=== PATIENT | female | born 1985 | race Caucasian/White ===

== ENCOUNTER 2017-03-19 03:55 | Inpatient (IN) | payer OTHER ==
[2017-03-19] MEDS ORDERED: DEXTROSE 5%-LACTATED RINGERS 1,000 ML IV SCH (05:15)
[2017-03-19 05:31] VITALS: BMI 46.5
[2017-03-19] MEDS ORDERED: OXYTOCIN 15 UNITS/ LR 250 ML 250 ML IVPB SCH (06:30)
--- NOTE | 2017-03-19 06:35 | HP ---
Past Medical History - Primary Care Physician PCP:: Armond Ritchie - Admission Chief Complaint: labor pains History of Present Illness: 31 y/o comes with labor pains. She is a pt of [facility]. gbs neg, hiv neg, cbc normal, hep neg, rpr neg. Comes at 4 cm labor pain History Source: Patient Limitations to Obtaining History: No Limitations - Past Medical History [employer]TING [employer]ER: No: Alzheimer's, CVA, Dementia, Migraine, Multiple Sclerosis, Peripheral Neuropathy, Parkinson's, Seizure, Syncope, TIA, Vertigo, Other Cardiovascular: No: AFIB, Aneurysm, Aortic Insufficiency, Aortic Stenosis, CAD, CHF, Deep Vein Thrombosis, HTN, Hyperlipdemia, SD, Mitral Insufficiency, Mitral Stenosis, Murmur, Pulmonary Hypertension, Other Pulmonary: No: Asthma, Bronchitis, Cancer, COPD, O2 Dependent, Pneumonia, Previously Intubated, Pulmonary Embolus, Pulmonary Fibrosis, Sleep Apnea, Other Gastrointestinal: No: Ascites, Cancer, Constipation, Crohn's Disease, Diverticulitis, Diverticulosis, Esophageal Varices, Gastritis, GERD, GI Bleed, Hemorrhoids, Hiatal Hernia, Inflamatory Bowel Disease, Irritable Bowel Disease, Pancreatitis, Peptic Ulcer Disease, Ulcerative Colitis, Other Hepatobiliary: No: Cirrhosis, Cholelithiasis, Cholecystitis, Choledocholithiasis , Hepatitis A, Hepatitis B, Hepatitis C, Other Renal/: No: Renal Failure, Renal Inusuff, BPH, Cancer, Hematuria, Hemodialysis , Neurogenic Bladder, Renal Calculi, UTI, Other Reproductive: No: Ectopic , Endometriosis, Fibroids, PID, Polycystic Ovary Syndrome, Postmenopausal, Other ...: 4 ...Para: 3 ...Term: 3 ...: 0 ...Spon : 0 ...Induced : 0 ...Multiple Gestation: 0 ...LMP: 06/07/16 ... Weeks Gestation by Dates: 40.5 ...EDC by Dates: 03/14/17 ...EDC by Sono: 03/14/17 Heme/Onc: No: Anemia, B12 Deficiency, Bleeding Disorder, Cancer, Current Chemotherapy, Current Radiation Therapy, Hemochromatosis, Hypercoaguable State, Myeloproliferative Synd, Sickle Cell Disease, Sickle Cell Trait, Thrombocytopenia, Other Infectious Disease: No: AIDS, C-Diff, Herpes Zoster, HIV, MRSA, STD's, Tuberculosis, VREF, Other Psych: No: Addictions, Anxiety, Bipolar, Depression, Panic, Psychosis, Schizophrenia, Other Musculoskeletal: No: Bursitis, Chronic low back pain, Hemiparesis, Hemiplegia, Osteoarthritis, Paraplegia, Other Rheumatology: No: Fibromyalgia, Gout, Lupus, Rheumatoid Arthritis, Sarcoidosis, Vasculitis, Other ENT: No: Allergic Rhinitis, Sinusitis, Other Dermatology: No: Basal Cell, Cellulitis, Eczema, Melanoma, Psoriasis, Squamous Cell, Other - Past Surgical History Past Surgical History: No: None, AAA Repair, AICD, Amputation, Appendectomy, Arthrosocopy, AV Fistula/Graft, Bariatric Surgery, Breast Biopsy, Bypass, CABG, Carotid Endarterectomy, Cataract Removal, Cholecystectomy, Colectomy, Colonoscopy, Colostomy, Craniotomy, , Cystectomy, Hernia Repair, Hysterectomy, Ileal Conduit, Ileosotomy, Joint Replacement, Kidney Transplant, Laminectomy, Liver Transplant, Mastectomy, Nephrectomy, Oopherectomy, Orchiectomy, Permanent Pacemaker, Prostatectomy, Splenectomy, Stent, Thoracotomy , TURP, Tonsillectomy, Tubal Ligation, Upper Endoscopy, Valve Replacement, Vasectomy, Vein Stripping/Ligation - Advance Directives Advance Directives: No: Living Will, Health Care Proxy, DNR, Organ Donor, Tissue Donor, MOLST - Smoking History Smoking history: Never smoked Aproximately how many cigarettes per day: 0 - Alcohol/Substance Use Hx Alcohol Use: No History of Substance Use: denies: None, Cocaine, Heroin, Marijuana, Prescription , Tranquilizers - Social History Usual Living Arrangement: No: Alone, With Spouse, With Parent, With Significant Other, With Child, Assisted Living, [facility]pc, Other Home Medications - Allergies Allergies/Adverse Reactions: Allergies Allergy/AdvReac Type Severity Reaction Status Date / Time No Known Allergies Allergy Verified 06/22/12 12:31 - Home Medications Home Medications: Ambulatory Orders Iron 1 tab PO DAILY 03/18/17 Vitamins (Sjr) - 1 tab PO DAILY 03/18/17 Ibuprofen [Motrin -] 600 mg PO TID #21 tablet 03/20/17 Review of Systems - Review of Systems Constitutional: reports: No Symptoms Eyes: reports: No Symptoms HENT: reports: No Symptoms Neck: reports: No Symptoms Cardiovascular: reports: No Symptoms Respiratory: reports: No Symptoms Gastrointestinal: reports: No Symptoms Genitourinary: reports: No Symptoms Breasts: reports: No Symptoms Reported Musculoskeletal: reports: No Symptoms Integumentary: reports: No Symptoms Neurological: reports: No Symptoms Endocrine: reports: No Symptoms Hematology/Lymphatic: reports: No Symptoms Psychiatric: reports: No Symptoms Physical Exam - Maternity Vital Signs: Vital Signs Temperature 97.6 F 03/19/17 04:00 Pulse Rate 77 03/19/17 04:00 Respiratory Rate 20 03/19/17 04:00 Blood Pressure 118/69 03/19/17 04:00 O2 Sat by Pulse Oximetry (%) Constitutional: Yes: Well Nourished Eyes: Yes: WNL HENT: Yes: WNL Neck: Yes: WNL Cardiovascular: Yes: WNL Breast(s): Yes: WNL - Abdominal Exam/OB Presentation: Vertex Contractions: Yes Regularity: Irregular Intensity: Mild Monitor Mode: External Heart Rate (range): 150 Category: I Accelerations: Uniform Decelerations: None - Vaginal Exam/OB Vaginal Bleediing: No Dilatation (cm): 4 Effacement (%): 60 Amniotic Membrane Status: Ruptured Nitrazine Test: Positive Amniotic Fluid: Yes: Clear Presentation: Vertex/Position Station: -3 - Physical Exam Musculoskeletal: Yes: WNL Extremities: Yes: WNL Assessment/Plan admit labs done pitocin expect
[2017-03-19] MEDS: ELECTROLYTE-148 SOLN 1,000 ML IV SCH ×2 (07:30→08:32)
[2017-03-19] MEDS ORDERED: FENTANYL/BUPIVACAINE/NS/PF - PCEA - 50 ML DISP.SYRIN EP SCH ×2 (08:00→10:22)
--- NOTE | 2017-03-19 09:12 | PN ---
Ante-Partal Exam - Subjective Vital Signs: Vital Signs Temperature 97.7 F 03/19/17 06:00 Pulse Rate 67 03/19/17 08:45 Respiratory Rate 20 03/19/17 08:45 Blood Pressure 96/55 03/19/17 08:45 O2 Sat by Pulse Oximetry (%) 100 03/19/17 08:45 Bleeding: No Headache: No Visual changes: No Right upper quadrant pain: No - Contractions Contractions: Yes Regularity: Regular Intensity: Unaware Monitor Mode: External - Exam during Labor Heart Rate: 150 Variability: Moderate Heart Rate Location: Midline Category: I Monitor Accelerations: Present Monitor Decelerations: None Exam: Vaginal Dilatation (cm): 9 Effacement (%): 100 Amniotic Membrane Status: Ruptured Nitrazine Test: Positive Amniotic Fluid: Clear Presentation: Vertex Station: -1 - Assessment/Plan Assessment/Plan: continue care expect
[2017-03-19] MEDS: OXYTOCIN 20 UNITS in 0.9% NS 1,000 ML IV SCH ×2 (14:10→19:21)
[2017-03-19] MEDS ORDERED: BENZOCAINE 28 GM HEMORRHOIDAL OINTMENT TP PRN (14:45)
[2017-03-19] MEDS ORDERED: BENZOCAINE 20% 57 GM BOTTLE TP PRN (14:45)
[2017-03-19] MEDS ORDERED: WITCH HAZEL 50% (TUCKS) 40 PAD/JAR PAD TP PRN (14:45)
[2017-03-19] MEDS ORDERED: METHYLERGONOVINE MALEATE 0.2 MG/1 ML AMP IM PRN (14:45)
[2017-03-19] MEDS ORDERED: BISACODYL 10 MG SUPP.RECT RC PRN (14:45)
--- NOTE | 2017-03-19 14:45 | PN ---
Delivery - Delivery Vaginal Delivery: No Problems Episiotomy/Laceration: Midline EBL (cc): 300 Delivery, Single - [place] Feeding Plan Initial Plan: Elected not to breastfeed exclusively throughout hospitalization
[2017-03-20] MEDS: IBUPROFEN 600 MG TABLET (FP) PO PRN ×2 (00:19→14:37)
[2017-03-20] MEDS: ACETAMINOPHEN 325 MG TABLET (FP) PO PRN ×2 (00:19→14:36)
--- NOTE | 2017-03-20 05:41 | PN ---
Post Progress Note Post Day: 1 Type of Delivery: Vital Signs: Vital Signs Temperature 98.5 F 03/20/17 00:33 Pulse Rate 90 03/20/17 00:33 Respiratory Rate 20 03/20/17 00:33 Blood Pressure 120/65 03/20/17 00:33 O2 Sat by Pulse Oximetry (%) 100 03/19/17 17:00 Breast Exam: Yes: Soft Uterus: Yes: Fundus Firm Abdomen/GI: Yes: Abdomen soft Lochia: Yes: Rubra Lochia, amount: Small Perineum: Yes: Intact Activity: Ambulating Assessment/Plan as above doing well ambulate dc home tomorrow
[2017-03-20 07:37] LABS: BASOPHIL 0.1 % (0-2.0); MCH 30.3 pg (25.7-33.7); MEAN CELL VOLUME 89.2 fl (80-96); MEAN PLT VOLUME 8.4 fl (7.5-11.1); NEUTROPHILS 73.8 % (42.8-82.8); PLATELET COUNT 104 K/MM3 (134-434); RDW 13.8 % (11.6-15.6)
[2017-03-20] MEDS ORDERED: FLU VACC QS2017-18 36MOS UP/PF 60 MCG/0.5 ML SYRINGE IM ONE (10:00)
[2017-03-20] MEDS ORDERED: DIPHTH,PERTUSS(ACELL),TET 0.5 ML DISP.SYRIN IM ONE (10:00)
[2017-03-20] MEDS ORDERED: SENNOSIDES/DOCUSATE COMBO (SENNA PLUS) TABLET (UD) PO PRN (22:00)
[2017-03-21] MEDS: ACETAMINOPHEN 325 MG TABLET (FP) PO PRN (06:12)
[2017-03-21] MEDS: IBUPROFEN 600 MG TABLET (FP) PO PRN (06:12)
[2017-03-21 08:39] VITALS: BP 135/70; PULSE 85; TEMP 98.8
--- NOTE | 2017-03-21 11:21 | PN ---
Post Progress Note Post Day: 2 Type of Delivery: Vital Signs: Vital Signs Temperature 98.8 F 03/21/17 08:37 Pulse Rate 85 03/21/17 08:37 Respiratory Rate 20 03/21/17 08:37 Blood Pressure 135/70 03/21/17 08:37 O2 Sat by Pulse Oximetry (%) 100 03/19/17 17:00 Breast Exam: Yes: Soft Uterus: Yes: Fundus Firm Abdomen/GI: Yes: Abdomen soft Lochia: Yes: Rubra Lochia, amount: Small Extremities: Yes: Calves non-tender Perineum: Yes: Intact - Labs Labs: CBC WBC 9.0 K/mm3 (4.0-10.0) 03/20/17 06:15 RBC 3.18 M/mm3 (3.60-5.2) L D 03/20/17 06:15 Hgb 9.6 GM/dL (10.7-15.3) L D 03/20/17 06:15 Hct 28.4 % (32.4-45.2) L D 03/20/17 06:15 MCV 89.2 fl (80-96) 03/20/17 06:15 MCH 30.3 pg (25.7-33.7) 03/20/17 06:15 MCHC 34.0 g/dl (32.0-36.0) 03/20/17 06:15 RDW 13.8 % (11.6-15.6) 03/20/17 06:15 Plt Count 104 K/MM3 (134-434) L D 03/20/17 06:15 MPV 8.4 fl (7.5-11.1) 03/20/17 06:15 Neutrophils % 73.8 % (42.8-82.8) 03/20/17 06:15 Lymphocytes % 15.7 % (8-40) 03/20/17 06:15 Monocytes % 9.4 % (3.8-10.2) 03/20/17 06:15 Eosinophils % 1.0 % (0-4.5) D 03/20/17 06:15 Basophils % 0.1 % (0-2.0) 03/20/17 06:15 Assessment/Plan as above dc home today
== END 2017-03-21 12:20 | disposition home or self-care (01) | DRG 560 ==
LOC: J3WN 03:55 → JLDR 04:44 → J3W 16:23
PROVIDERS: ADMIT Obstetrics & Gynecology; ATTEND Obstetrics & Gynecology
PROC: 10E0XZZ Delivery of Products of Conception, External Approach (ICD-10-PCS; principal; 2017-03-19)
PROC: 0W8NXZZ Division of Female Perineum, External Approach (ICD-10-PCS; 2017-03-19)
DX: O48.0 Post-term pregnancy (principal); Z3A.40 40 weeks gestation of pregnancy; Z37.0 Single live birth
CPT/HCPCS: 36415; 59409; 85025; 90686; 90715; G0008

== ENCOUNTER 2018-03-30 22:32 | Emergency (ER) | payer OTHER ==
[2018-03-30 23:04] VITALS: BMI 41.9
[2018-03-30 23:47] LABS: URINE APPEARANCE CLEAR; URINE BILIRUBIN NEGATIVE (<2.0 mg/dL); URINE COLOR LTYELLOW; URINE GLUCOSE (UA) NEGATIVE (NEGATIVE); URINE KETONE NEGATIVE (NEGATIVE); URINE LEUK ESTERASE 3+ (NEGATIVE); URINE NITRITE NEGATIVE (NEGATIVE); URINE PROTEIN NEGATIVE (NEGATIVE); URINE UROBILINOGEN NEGATIVE mg/dL (0.2-1.0)
[2018-03-30 23:51] LABS: EPI CELLS RARE /HPF (FEW); URINE BACTERIA RARE /hpf (NONE SEEN)
[2018-03-31] MEDS ORDERED: ACETAMINOPHEN 325 MG TABLET (FP) PO ONE (00:36)
[2018-03-31] MEDS ORDERED: SODIUM CHLORIDE 0.9% 1000 ML INFUS.BAG IV ONE (00:36)
[2018-03-31] MEDS ORDERED: CEFTRIAXONE 1 GM in DEXTROSE 5%-WATER - 100 ML IVPB ONE (00:37)
[2018-03-31] MEDS ORDERED: cefTRIAXone SODIUM 1 GM VIAL ONE (00:43)
[2018-03-31] MEDS ORDERED: ACETAMINOPHEN 325 MG TABLET (FP) ONE (00:50)
[2018-03-31 00:54] LABS: BASO % 0.1 % (0-2.0); EOS % 0.2 % (0-4.5); HEMATOCRIT 41.1 % (32.4-45.2); HEMOGLOBIN 14.2 GM/dL (10.7-15.3); LYMPH % 11.7 % (8-40); MCH 30.4 pg (25.7-33.7); MCHC 34.7 g/dl (32.0-36.0); MEAN CELL VOLUME 87.7 fl (80-96); MEAN PLT VOLUME 7.9 fl (7.5-11.1); MONO % 6.9 % (3.8-10.2); NEUT % 81.1 % (42.8-82.8); PLATELET COUNT 211 K/MM3 (134-434); RBC 4.69 M/mm3 (3.60-5.2); RDW 12.6 % (11.6-15.6); WHITE BLOOD COUNT 13.5 K/mm3 (4.0-10.0)
--- NOTE | 2018-03-31 01:31 | PDOC ---
History of Present Illness - General Chief Complaint: Urinary Problem Stated Complaint: COLD SYMPTOMS Time Seen by Provider: 03/30/18 23:21 History Source: Patient Exam Limitations: Clinical Condition - History of Present Illness Initial Comments: 03/31/18 11:25 Patient with no significant past medical history present with complain of three- day history of urinary frequency, dysuria, especially tenderness, and lower back pain. Patient denies fever, chills or weakness. Patient denies nausea or vomiting. Patient denies any other symptoms Timing/Duration: other (3 days) Past History - Past Medical History Allergies/Adverse Reactions: Allergies Allergy/AdvReac Type Severity Reaction Status Date / Time No Known Allergies Allergy Verified 06/22/12 12:31 Home Medications: Ambulatory Orders Iron 1 tab PO DAILY 03/18/17 Vitamins (Sjr) - 1 tab PO DAILY 03/18/17 Ibuprofen [Motrin -] 600 mg PO TID #21 tablet 03/20/17 Cephalexin [Keflex] 500 mg PO BID 7 Days #14 capsule 03/31/18 Phenazopyridine HCl [Pyridium] 100 mg PO TID 2 Days #6 tablet 03/31/18 Anemia: No Asthma: No Cancer: No Cardiac Disorders: No Diabetes: No HTN: No Hypercholesterolemia: No Seizures: No Thyroid Disease: No - Reproductive History (#): 3 Para: 3 Cervical CA: No Dysfunctional Uterine Bleeding: No Ectopic : No Endometrial CA: No Polycystic Ovaries: No Therapeutic (s) & number: No Tubal Ligation: No - Suicide/Smoking/Psychosocial Hx Smoking Status: No Smoking History: Never smoked Number of Cigarettes Smoked Daily: 0 Information on smoking cessation initiated: No Hx Alcohol Use: No Drug/Substance Use Hx: No Substance Use Type: None Hx Substance Use Treatment: No Review of Systems - Review of Systems Able to Perform ROS?: Yes Is the patient limited Estonian proficient: No Constitutional: No: Chills, Fever, Malaise Respiratory: Yes: SOB with Exertion. No: Symptoms reported ( ), Cough, Shortness of Breath, Wheezing, Productive cough, Hemoptysis Cardiac (ROS): No: Symptoms Reported, See HPI, Chest Pain, Edema, Irregular Heart Rate, Lightheadedness, Palpitations, Syncope, Chest Tightness, Other ABD/GI: No: Abd. Pain w/ defecation, Constipated, Diarrhea, Nausea, Vomiting : Yes: Burning, Dysuria, Frequency, Pain (suprapubic), Urgency. No: Discharge , Flank Pain, Hematuria Musculoskeletal: Yes: Back Pain (mild lower back) All Other Systems: Reviewed and Negative *Physical Exam - Vital Signs Last Vital Signs Temp Pulse Resp BP Pulse Ox 99 F 116 H 20 137/88 98 03/30/18 22:50 03/30/18 22:50 03/30/18 22:50 03/30/18 22:50 03/30/18 22:50 - Physical Exam Comments: 03/31/18 01:28 GENERAL: Well developed, well nourished. Awake and alert. No acute distress. HEENT: Normocephalic, atraumatic. PERRLA, EOMI. No conjunctival pallor. Sclera are non- icteric. Moist mucous membranes. Oropharynx is clear. CARDIOVASCULAR: Regular rate and rhythm. No murmurs, rubs, or gallops. Distal pulses are 2+ and symmetric. PULMONARY: No evidence of respiratory distress. Lungs clear to auscultation bilaterally. No wheezing, rales or rhonchi. ABDOMINAL: Mild suprapubic tenderness.Soft. Non-tender. No rebound or guarding. No organomegaly. Normoactive bowel sounds. SKIN: Warm and dry. Normal capillary refill. No rashes. No jaundice. NEUROLOGICAL: Alert, awake, appropriate. PSYCHIATRIC: Cooperative. Good eye contact. Appropriate mood and affect. General Appearance: Yes: Nourished, Appropriately Dressed. No: Apparent Distress ED Treatment Course - LABORATORY CBC & Chemistry Diagram: 03/31/18 00:30 03/31/18 00:30 - ADDITIONAL ORDERS Additional order review: Laboratory Results 03/30/18 23:37 Urine Color Ltyellow Urine Appearance Clear Urine pH 6.0 Ur Specific [place] 1.003 L Urine Protein Negative Urine Glucose (UA) Negative Urine Ketones Negative Urine Blood 3+ H Urine Nitrite Negative Urine Bilirubin Negative Urine Urobilinogen Negative Ur Leukocyte Esterase 3+ H Urine WBC (Auto) 48 Urine RBC (Auto) 1 Ur Epithelial Cells Rare Urine Bacteria Rare 03/31/18 00:30 RBC 4.69 MCV 87.7 MCHC 34.7 RDW 12.6 MPV 7.9 Neutrophils % 81.1 Lymphocytes % 11.7 D Monocytes % 6.9 Eosinophils % 0.2 Basophils % 0.1 - Medications Given in the ED: ED Medications Discontinued Medications Generic Name Dose Route Start Last Admin Trade Name Rina PRN Reason Stop Dose Admin Acetaminophen 975 mg 03/31/18 00:36 03/31/18 00:44 Tylenol - PO 03/31/18 00:37 975 mg ONCE ONE Administration Ceftriaxone Sodium 1 gm/ 100 mls @ 200 mls/hr 03/31/18 00:37 03/31/18 00:44 Dextrose IVPB 03/31/18 01:06 200 mls/hr ONCE ONE Administration Protocol Sodium Chloride 1,000 ml 03/31/18 00:36 03/31/18 00:44 Normal Saline - IV 03/31/18 00:37 1,000 ml ONCE ONE Administration Medical Decision Making - Medical Decision Making 03/31/18 01:29 Patient with no sig Past medical history present with complain of suprapubic tenderness, urinary frequency, and dysuria for 3 days without nausea, vomiting or fever. Exams significant for mild suprapubic tenderness. Patient mildly tachycardic. UA urine, culture sent. CBC CMP labs sent. Urine hCG ordered. IV hydration with normal saline 1 L ordered. Ceftriaxone 1 g IV ordered. Reassess after few minutes 03/31/18 02:17 Patient reported feeling much better after IV hydration and ceftriaxone. BP labs shows improved values of tachycardia. Patient is stable for home discharge on Keflex for a week with urology follow-up as needed. *DC/Admit/Observation/Transfer Diagnosis at time of Disposition: UTI (urinary tract infection) Qualifiers: Urinary tract infection type: acute cystitis Hematuria presence: with hematuria Qualified Code(s): N30.01 - Acute cystitis with hematuria Abdominal pain Qualifiers: Abdominal location: lower abdomen, unspecified Qualified Code(s): R10.30 - Lower abdominal pain, unspecified - Discharge Dispostion Disposition: HOME Condition at time of disposition: Stable Decision to Admit order: No - Prescriptions Prescriptions: Cephalexin [Keflex] 500 mg PO BID 7 Days #14 capsule Phenazopyridine HCl [Pyridium] 100 mg PO TID 2 Days #6 tablet - Referrals Referrals: Carmen Stallings MD [Primary Care Provider] - Yisel Donohue MD [Staff Physician] - - Patient Instructions Printed Discharge Instructions: DI for Urinary Tract Infection (UTI) Additional Instructions: Take medications as prescribed. Finish antibiotics even if improve symptoms. Follow up with preferred urology if symptoms persist for more than 5 days. Increase fluid intake. - Post Discharge Activity
[2018-03-31 01:34] LABS: ALBUMIN 3.9 g/dl (3.4-5.0); ALK PHOS 166 U/L (45-117); ANION GAP 12 MMOL/L (8-16); BILIRUBIN,TOTAL 0.6 mg/dL (0.2-1); BLOOD UREA NITROGEN 11 mg/dL (7-18); CALCIUM 8.7 mg/dL (8.5-10.1); CHLORIDE 105 mmol/L (98-107); CO2 23 mmol/L (21-32); CREATININE 0.8 mg/dL (0.55-1.3); GLUCOSE,RANDOM 123 mg/dL (74-106); POTASSIUM 3.3 mmol/L (3.5-5.1); SGOT/AST 30 U/L (15-37); SGPT/ALT 38 U/L (13-61); SODIUM 140 mmol/L (136-145)
[2018-03-31] MEDS ORDERED: diazePAM 5 MG TABLET ONE (02:24)
[2018-03-31 02:34] VITALS: BP 95/61; PULSE 77; TEMP 98.5
== END 2018-03-31 02:34 | disposition home or self-care (01) ==
LOC: JER 22:32
DX: N30.01 Acute cystitis with hematuria (principal)
CPT/HCPCS: 36415; 80053; 81003; 81015; 84702; 85025; 87086; 87186; 99281-25; J7030

== ENCOUNTER 2021-04-16 14:23 | Emergency (ER) | payer OTHER ==
[2021-04-16 14:54] VITALS: BP 123/81; PULSE 71; TEMP 98; BMI 43.4
[2021-04-16 16:07] LABS: HCG,QUALITATIVE URINE Negative
[2021-04-16 16:09] LABS: EPI CELLS >36 /uL (0-25.1); HYALINE CASTS 3 /uL (0-3.1); URINE APPEARANCE CLOUDY; URINE BACTERIA 1611 /uL (0-1359); URINE BILIRUBIN NEGATIVE (NEGATIVE); URINE COLOR DK YELLOW; URINE GLUCOSE (UA) NEGATIVE (NEGATIVE); URINE KETONE NEGATIVE (NEGATIVE); URINE LEUK ESTERASE TRACE (NEGATIVE); URINE NITRITE POSITIVE (NEGATIVE); URINE PROTEIN NEGATIVE (NEGATIVE); URINE RBC 19 /uL (0-23.9); URINE WBC 27 /uL (0-25.8)
== END 2021-04-16 19:29 | disposition home or self-care (01) ==
LOC: JER 14:23
DX: N39.0 Urinary tract infection, site not specified (principal); N30.00 Acute cystitis without hematuria
CPT/HCPCS: 74176-TC; 81003; 84703; 87086; 99284-25

== ENCOUNTER 2021-06-29 04:18 | Day surgery (SDC) | payer OTHER ==
[2021-06-25 11:36] VITALS: BMI 40.2
[2021-06-29] MEDS ORDERED: MIDAZOLAM HCL 2 MG/2 ML SINGLE DOSE VIAL ONE (11:26)
[2021-06-29] MEDS ORDERED: GLYCOPYRROLATE 0.2 MG/1 ML VIAL ONE (11:26)
[2021-06-29] MEDS ORDERED: PROPOFOL 20 ML ONE ×2 (11:26)
[2021-06-29] MEDS ORDERED: oxyCODONE HCL 5 MG TABLET PO PRN ×2 (12:32)
[2021-06-29] MEDS ORDERED: ACETAMINOPHEN 500 MG TABLET (FP) PO PRN (12:32)
[2021-06-29] MEDS ORDERED: ONDANSETRON 4 MG/2 ML VIAL IVPUSH PRN (12:32)
[2021-06-29] MEDS ORDERED: LACTATED RINGERS SOLUTION 1,000 ML IV SCH (12:45)
[2021-06-29 16:58] VITALS: BP 110/68; PULSE 67; TEMP 98
== END 2021-06-29 15:26 | disposition home or self-care (01) ==
LOC: JASU-SURG 04:18
PROVIDERS: ATTEND Urology
PROC: 0TF4XZZ Fragmentation in Left Kidney Pelvis, External Approach (ICD-10-PCS; principal; 2021-06-29 10:30)
DX: N20.0 Calculus of kidney (principal)
CPT/HCPCS: 81025

== ENCOUNTER 2021-12-15 04:17 | Day surgery (SDC) | payer OTHER ==
[2021-12-11 14:33] VITALS: BMI 41.5
[~2021-12-15 04:17] MED LIST: GENTAMICIN SO4 80 MG/2 ML VIAL IVPB ONE; ceFAZolin SODIUM 1 GM VIAL IVPB ONE
[2021-12-15] MEDS ORDERED: MIDAZOLAM HCL 2 MG/2 ML SINGLE DOSE VIAL ONE (13:21)
[2021-12-15] MEDS ORDERED: ceFAZolin SODIUM 1 GM VIAL ONE (13:27)
[2021-12-15] MEDS ORDERED: SODIUM CHLORIDE 0.9% P/F 10 ML VIAL IJ ONE (13:27)
[2021-12-15] MEDS ORDERED: GENTAMICIN SO4 80 MG/2 ML VIAL ONE (13:28)
[2021-12-15] MEDS ORDERED: ceFAZolin SODIUM 1 GM VIAL IVPB ONE (13:34)
[2021-12-15] MEDS ORDERED: GENTAMICIN SO4 80 MG/2 ML VIAL IVPB ONE (13:34)
[2021-12-15] MEDS ORDERED: ONDANSETRON 4 MG/2 ML VIAL IVPUSH PRN (13:37)
[2021-12-15] MEDS ORDERED: ACETAMINOPHEN 325 MG TABLET (FP) PO PRN (13:37)
[2021-12-15] MEDS ORDERED: oxyCODONE HCL 5 MG TABLET PO PRN (13:37)
[2021-12-15] MEDS ORDERED: PROPOFOL 20 ML ONE (13:44)
[2021-12-15] MEDS ORDERED: LACTATED RINGERS SOLUTION 1,000 ML IV SCH (13:45)
[2021-12-15 15:29] VITALS: BP 114/68; PULSE 67; TEMP 97.3
== END 2021-12-15 16:03 | disposition home or self-care (01) ==
LOC: JASU-SURG 04:17
PROVIDERS: ATTEND Urology
PROC: 0TF3XZZ Fragmentation in Right Kidney Pelvis, External Approach (ICD-10-PCS; principal; 2021-12-15 13:30)
DX: N20.0 Calculus of kidney (principal)
CPT/HCPCS: 81025

== ENCOUNTER 2022-03-22 14:26 | Emergency (ER) | payer OTHER ==
[2022-03-22 14:43] VITALS: BP 162/81; PULSE 78; RESP 18; TEMP 98; BMI 33.6
[2022-03-22 17:40] LABS: EPI CELLS >36 /uL (0-25.1); HYALINE CASTS 2 /uL (0-3.1); URINE APPEARANCE CLOUDY; URINE BACTERIA >9,000 /uL (0-1359); URINE BILIRUBIN NEGATIVE (NEGATIVE); URINE COLOR YELLOW; URINE GLUCOSE (UA) NEGATIVE (NEGATIVE); URINE KETONE NEGATIVE (NEGATIVE); URINE LEUK ESTERASE 1+ (NEGATIVE); URINE NITRITE POSITIVE (NEGATIVE); URINE PROTEIN NEGATIVE (NEGATIVE); URINE RBC 26 /uL (0-23.9); URINE UROBILINOGEN 0.2 mg/dL (0.2-1.0); URINE WBC 78 /uL (0-25.8)
== END 2022-03-22 18:00 | disposition home or self-care (01) ==
LOC: JER 14:26 → JERFT 14:26
DX: N30.00 Acute cystitis without hematuria (principal)
CPT/HCPCS: 36415; 81003; 84703; 87086; 87186; 87491; 87591; 99283-25

== ENCOUNTER 2022-08-29 16:35 | Emergency (ER) | payer OTHER ==
[2022-08-29 16:54] VITALS: BP 114/86; PULSE 103; RESP 20; TEMP 99.5; BMI 31.1
[2022-08-29] MEDS ORDERED: IBUPROFEN 400 MG TABLET (FP) PO ONE ×2 (18:49→18:52)
[2022-08-29] MEDS ORDERED: ACETAMINOPHEN 500 MG TABLET (FP) PO ONE (18:49)
[2022-08-29] MEDS ORDERED: FAMOTIDINE 20 MG TABLET PO ONE (18:50)
[2022-08-29] MEDS ORDERED: ACETAMINOPHEN 500 MG TABLET (FP) ONE (18:52)
[2022-08-29] MEDS ORDERED: FAMOTIDINE 20 MG TABLET ONE (18:52)
== END 2022-08-29 19:02 | disposition home or self-care (01) ==
LOC: JERFT 16:35
DX: R21 Rash and other nonspecific skin eruption (principal); B01.9 Varicella without complication
CPT/HCPCS: 99282-25

== ENCOUNTER 2022-12-11 14:02 | Emergency (ER) | payer OTHER ==
[2022-12-11 14:13] VITALS: BP 111/74; PULSE 66; RESP 18; TEMP 97.8; BMI 29.2
[2022-12-11] MEDS ORDERED: ACETAMINOPHEN 1000 MG/100 ML BAG IVPB ONE (14:55)
[2022-12-11] MEDS ORDERED: SODIUM CHLORIDE 1,000 ML IV STA (14:55)
[2022-12-11] MEDS ORDERED: METOCLOPRAMIDE HCL INJECTION 10 MG/2 ML VIAL IVPUSH ONE (14:56)
[2022-12-11] MEDS ORDERED: METOCLOPRAMIDE HCL INJECTION 10 MG/2 ML VIAL ONE (15:12)
[2022-12-11] MEDS ORDERED: ACETAMINOPHEN INJECTION 100 ML IVPB ONE (15:13)
[2022-12-11 15:14] LABS: BASO % 0.2 % (0-2.0); EOS % 1.4 % (0-4.5); HEMATOCRIT 39.7 % (32.4-45.2); HEMOGLOBIN 13.5 GM/dL (10.7-15.3); MCH 30.3 pg (25.7-33.7); MEAN PLT VOLUME 8.2 fl (7.5-11.1); NEUT % 60.4 % (42.8-82.8); PLATELET COUNT 180 10^3/uL (134-434); RBC 4.46 M/mm3 (3.60-5.2); RDW 12.8 % (11.6-15.6); WHITE BLOOD COUNT 6.4 K/mm3 (4.0-10.0)
[2022-12-11 15:28] LABS: ALBUMIN 3.5 g/dl (3.4-5.0); CALCIUM 8.5 mg/dL (8.5-10.1)
[2022-12-11 15:29] LABS: BLOOD UREA NITROGEN 10.5 mg/dL (7-18)
[2022-12-11 15:31] LABS: CREATININE 0.7 mg/dL (0.55-1.3)
[2022-12-11 15:33] LABS: BILIRUBIN,TOTAL 0.4 mg/dL (0.2-1); TOT PROT 6.8 g/dl (6.4-8.2)
[2022-12-11 15:34] LABS: EPI CELLS >36 /uL (0-25.1); HYALINE CASTS 1 /uL (0-3.1); PH,URINE 7.5 (5.0-8.0); URINE APPEARANCE CLOUDY; URINE BACTERIA >9,000 /uL (0-1359); URINE BILIRUBIN NEGATIVE (NEGATIVE); URINE COLOR YELLOW; URINE GLUCOSE (UA) NEGATIVE (NEGATIVE); URINE KETONE NEGATIVE (NEGATIVE); URINE LEUK ESTERASE 1+ (NEGATIVE); URINE NITRITE POSITIVE (NEGATIVE); URINE PROTEIN NEGATIVE (NEGATIVE); URINE RBC 41 /uL (0-23.9); URINE UROBILINOGEN 0.2 mg/dL (0.2-1.0); URINE WBC 83 /uL (0-25.8)
[2022-12-11 15:47] LABS: HCG,QUALITATIVE URINE Negative
[2022-12-11] MEDS ORDERED: CEFTRIAXONE 1 GM in DEXTROSE 5%-WATER - 100 ML IVPB ONE (17:10)
[2022-12-11] MEDS ORDERED: CEFTRIAXONE 1 GM/50 ML BAG ONE (17:29)
== END 2022-12-11 18:10 | disposition home or self-care (01) ==
LOC: JER 14:02
PROC: 3E03329 Introduction of Other Anti-infective into Peripheral Vein, Percutaneous Approach (ICD-10-PCS; principal; 2022-12-11)
PROC: 3E033NZ Introduction of Analgesics, Hypnotics, Sedatives into Peripheral Vein, Percutaneous Approach (ICD-10-PCS; 2022-12-11)
PROC: 3E033GC Introduction of Other Therapeutic Substance into Peripheral Vein, Percutaneous Approach (ICD-10-PCS; 2022-12-11)
PROC: 3E0337Z Introduction of Electrolytic and Water Balance Substance into Peripheral Vein, Percutaneous Approach (ICD-10-PCS; 2022-12-11)
DX: M54.9 Dorsalgia, unspecified (principal); N30.01 Acute cystitis with hematuria; R10.11 Right upper quadrant pain; R11.0 Nausea
CPT/HCPCS: 36415; 76705-TC; 80053; 81003; 83690; 84703; 85025; 87077; 87086; 87186; 99284-25

== ENCOUNTER 2023-08-22 22:38 | Emergency (ER) | payer OTHER ==
[2023-08-22 22:44] VITALS: BP 152/100; PULSE 63; RESP 20; TEMP 97.7; BMI 29.8
[2023-08-23] MEDS ORDERED: ONDANSETRON 4 MG/2 ML VIAL ONE (00:09)
[2023-08-23] MEDS: SODIUM CHLORIDE 0.9% 1000 ML INFUS.BAG IV ONE (00:16)
[2023-08-23] MEDS: ONDANSETRON 4 MG/2 ML VIAL IVPUSH ONE (00:17)
[2023-08-23 00:30] LABS: BASO % 0.1 % (0-2.0); EOS % 2.7 % (0-4.5); HEMATOCRIT 37.9 % (32.4-45.2); HEMOGLOBIN 13.1 GM/dL (10.7-15.3); LYMPH % 37.6 % (8-40); MCH 31.4 pg (25.7-33.7); MCHC 34.6 g/dl (32.0-36.0); MEAN CELL VOLUME 90.8 fl (80-96); MEAN PLT VOLUME 8.2 fl (7.5-11.1); MONO % 5.9 % (3.8-10.2); NEUT % 53.7 % (42.8-82.8); PLATELET COUNT 193 10^3/uL (134-434); RBC 4.17 M/mm3 (3.60-5.2); RDW 12.9 % (11.6-15.6); WHITE BLOOD COUNT 7.8 K/mm3 (4.0-10.0)
[2023-08-23 00:44] LABS: CALCIUM 8.4 mg/dL (8.5-10.1); POTASSIUM 3.7 mmol/L (3.5-5.1)
[2023-08-23 00:45] LABS: ALBUMIN 3.4 g/dl (3.4-5.0); BLOOD UREA NITROGEN 12.2 mg/dL (7-18)
[2023-08-23 00:48] LABS: CREATININE 0.7 mg/dL (0.55-1.3)
[2023-08-23 00:50] LABS: BILIRUBIN,TOTAL 0.4 mg/dL (0.2-1)
[2023-08-23 00:54] LABS: EPI CELLS >36 /uL (0-25.1); HYALINE CASTS 1 /uL (0-3.1); PH,URINE 6.5 (5.0-8.0); URINE APPEARANCE TURBID; URINE BACTERIA >9,000 /uL (0-1359); URINE BILIRUBIN NEGATIVE (NEGATIVE); URINE COLOR YELLOW; URINE GLUCOSE (UA) NEGATIVE (NEGATIVE); URINE KETONE NEGATIVE (NEGATIVE); URINE LEUK ESTERASE NEGATIVE (NEGATIVE); URINE NITRITE POSITIVE (NEGATIVE); URINE PROTEIN NEGATIVE (NEGATIVE); URINE RBC 36 /uL (0-23.9); URINE UROBILINOGEN 0.2 mg/dL (0.2-1.0); URINE WBC 37 /uL (0-25.8)
[2023-08-23] MEDS ORDERED: KETOROLAC TROMETHAMINE 30 MG/1 ML VIAL ONE (01:19)
[2023-08-23] MEDS ORDERED: CEFTRIAXONE 1 GM/50 ML BAG ONE (01:20)
[2023-08-23] MEDS: CEFTRIAXONE 1 GM in DEXTROSE 5%-WATER - 100 ML IVPB ONE (01:27)
[2023-08-23] MEDS: KETOROLAC TROMETHAMINE 30 MG/1 ML VIAL IVPUSH ONE (01:27)
== END 2023-08-23 01:41 | disposition home or self-care (01) ==
LOC: JER 22:38
PROC: 3E033GC Introduction of Other Therapeutic Substance into Peripheral Vein, Percutaneous Approach (ICD-10-PCS; 2023-08-22)
PROC: 3E03329 Introduction of Other Anti-infective into Peripheral Vein, Percutaneous Approach (ICD-10-PCS; principal; 2023-08-23)
PROC: 3E033GC Introduction of Other Therapeutic Substance into Peripheral Vein, Percutaneous Approach (ICD-10-PCS; 2023-08-23)
DX: R11.0 Nausea (principal); R19.7 Diarrhea, unspecified; R10.13 Epigastric pain; N30.00 Acute cystitis without hematuria
CPT/HCPCS: 36415; 80053; 81003; 83690; 85025; 99284-25

== ENCOUNTER 2024-04-07 15:15 | Emergency (ER) | payer OTHER ==
[2024-04-07 15:23] VITALS: BP 158/95; PULSE 71; RESP 18; TEMP 98.8; BMI 31.1
[2024-04-07] MEDS ORDERED: ACETAMINOPHEN 500 MG TABLET (FP) ONE (16:45)
[2024-04-07] MEDS ORDERED: KETOROLAC TROMETHAMINE 30 MG/1 ML VIAL ONE (16:45)
[2024-04-07] MEDS: ACETAMINOPHEN 500 MG TABLET (FP) PO ONE (16:51)
[2024-04-07] MEDS: KETOROLAC TROMETHAMINE 30 MG/1 ML VIAL IM ONE (16:51)
[2024-04-07 19:25] LABS: HIV INTERPRETATION NEGATIVE (NEGATIVE)
== END 2024-04-07 19:10 | disposition home or self-care (01) ==
LOC: JERFT 15:15
PROC: 3E0133Z Introduction of Anti-inflammatory into Subcutaneous Tissue, Percutaneous Approach (ICD-10-PCS; principal; 2024-04-07)
DX: M17.12 Unilateral primary osteoarthritis, left knee (principal)
CPT/HCPCS: 36415; 73562-TC-LT-FY; 86803; 87389; 99284-25

== ENCOUNTER → 2024-09-05 | Day surgery (SDC) | payer OTHER | END | disposition home or self-care (01) | LOC: JRADUS-SUR 07:13 | PROVIDERS: ATTEND Midwife | PROC: 0H9U3ZX Drainage of Left Breast, Percutaneous Approach, Diagnostic (ICD-10-PCS; principal; 2024-09-05) | DX: N60.02 Solitary cyst of left breast (principal) | CPT/HCPCS: 19000; 76942-TC; 87899; 88173; 88305-TC ==